=== PATIENT | male | born 1975 | race Two or more races ===

== ENCOUNTER 2016-09-16 22:42 | Emergency (ER) | payer OTHER ==
[~2016-09-16] VITALS: Ht 193 cm; Wt 107.6 kg
[2016-09-16] MEDS ORDERED: BUPR-86 PO (23:06)
[2016-09-16] MEDS ORDERED: ASPIRIN 81 MG TABLET CHEW ONE (23:43)
[2016-09-16] MEDS ORDERED: MAALOX/HYOSCYAMINE/LIDOCAINE 45 ML BTL ONE (23:44)
[2016-09-17] MEDS ORDERED: MAALOX/HYOSCYAMINE/LIDOCAINE 45 ML BTL PO ONE
[2016-09-17] MEDS ORDERED: ASPIRIN 81 MG TABLET CHEW PO ONE
[2016-09-17 00:13] LABS: BLOOD UREA NITROGEN 16 mg/dL (7-18)
[2016-09-17 00:39] VITALS: BP 131/77
== END 2016-09-17 00:47 | disposition home or self-care (01) ==
LOC: ED 23:59
DX: R07.89 Other chest pain (principal)
CPT/HCPCS: 36415; 71010; 80048; 82040; 84484; 85025; 93005; 99285